=== PATIENT | male | born 1960 | race American Indian/Alaskan Native ===

== ENCOUNTER 2018-05-17 05:15 | Emergency (ER) | payer OTHER ==
[2018-05-17 05:24] VITALS: BP 162/78
--- NOTE | 2018-05-17 06:30 | XRay Report ---
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 These are also seen in the left lower extremity, whi ch is partially imaged on lateral view. Mild left knee tricompartmental osteoarthrosis. No definite j oint effusion. No gross malalignment or deformity identified. No periarticular fracture. IMPRESSION: No acute right knee findings. 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 Note history and laterality marker mismatch. This document is electronically signed by Mc Gross MD., May 17 2018 06:28:05 AM ET
[2018-05-17] MEDS ORDERED: NORCO 5/325 PO ONE ×2 (07:19→07:20)
[2018-05-17] MEDS ORDERED: NORCO 5/325 ONE (07:21)
--- NOTE | 2018-05-17 07:52 | Emergency Department Report ---
ED Lower Extremity HPI - General Chief Complaint: Extremity Injury, Lower Stated Complaint: RIGHT KNEE PAIN Time Seen by Provider: 05/17/18 07:15 Source: patient Mode of arrival: Ambulatory Limitations: No Limitations - History of Present Illness Initial Comments: This is a 57-year-old male who presents with acute on chronic right knee pain. 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 He was in route to work this morning but could not tolerate pain. Patient reports pain is 10 out of 10 on pain scale constant throbbing sensation to anterior knee. He also reports some swelling and pain worse with movement. Patient reports pain increased over the past 5 months. He also reports chronic pain for several years to bilateral lower extremity. Patient states he is applying Biofreeze with no improvement of symptoms. Denies numbness or tingling, radiating pain, paresthesias, or weakness. MD Complaint: knee injury (right) Onset/Timin -: month(s) Injury: Knee: Right Type of Injury: unknown Place: home Severity: severe Severity scale (0 -10): 10 Improves With: nothing Worsens With: weight bearing, movement, palpation Context: walking Associated Symptoms: swelling, able to partially bear weight, ambulatory. denies: numbness, tingling, unable to bear weight Treatments Prior to Arrival: cold therapy - Related Data Previous Rx's Medication Instructions Recorded Last Taken Type traMADol [Ultram 50 MG tab] 50 mg PO Q6HR PRN #12 tablet 05/17/18 Unknown Rx Allergies Allergy/AdvReac Type Severity Reaction Status Date / Time aspirin Allergy Nausea Unverified 12/20/13 09:21 ED Review of Systems ROS: Stated complaint: RIGHT KNEE PAIN Other details as noted in HPI Constitutional: denies: chills, fever Respiratory: denies: cough, shortness of breath, wheezing Cardiovascular: denies: chest pain, palpitations Gastrointestinal: denies: abdominal pain, nausea, diarrhea Musculoskeletal: joint swelling (right knee), arthralgia (right knee). denies: back pain Skin: denies: rash, lesions Neurological: denies: headache, weakness, paresthesias Psychiatric: denies: anxiety, depression ED Past Medical Hx - Past Medical History Previous Medical History?: Yes Additional medical history: Bilatereral knee pain, defenerative spurring. Osteoarthrosos, lumbar spondylosis - 12/20/13 - Surgical History Past Surgical History?: No - Social History Smoking Status: Current Every Day Smoker Substance Use Type: Alcohol - Medications Home Medications: Home Medications Medication Instructions Recorded Confirmed Last Taken Type traMADol [Ultram 50 MG tab] 50 mg PO Q6HR PRN #12 tablet 05/17/18 Unknown Rx ED Physical Exam - General Limitations: No Limitations General appearance: alert, in no apparent distress - Respiratory Respiratory exam: Present: normal lung sounds bilaterally. Absent: respiratory distress - Cardiovascular Cardiovascular Exam: Present: regular rate, normal rhythm. Absent: systolic murmur, diastolic murmur, rubs, gallop - GI/Abdominal GI/Abdominal exam: Present: soft, normal bowel sounds - Expanded Lower Extremity Exam Right Knee exam: Present: tenderness (tenderness swelling anterior patella, limited range of motion, 20 flexion actively.), swelling, crepidus, pain w/ pronation/supination. Absent: full ROM, abrasion, laceration, ecchymosis, deformity, dislocation, erythema, effusion, posterior draw sign, full knee extension Lower Leg exam: Present: normal inspection, full ROM Ankle exam: Present: normal inspection, full ROM Foot/Toe exam: Present: normal inspection, full ROM Neuro vascular tendon exam: Present: no vascular compromise Gait: Positive: observed and limited by pain - Neurological Exam Neurological exam: Present: alert, oriented X3 - Psychiatric Psychiatric exam: Present: normal affect, normal mood - Skin Skin exam: Present: warm, dry, intact, normal color. 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 These are also seen in the left lower extremity, which is partially imaged on lateral view. Mild left knee tricompartmental osteoarthrosis. No definite joint effusion. No gross malalignment or deformity identified. No periarticular fracture. IMPRESSION: No acute right knee findings. 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 Note history and laterality marker mismatch. - Medical Decision Making Patient was examined by me. Vitals are normal and patient is in no acute distress. Given [place] 5/325 mg by mouth once while in ER. Obtained a x-ray of the left knee. X-ray dictated by radiologist report reviewed by myself. No acute right knee findings. 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 Note history and laterality marker mismatch. Consulted with the attending and Dr. Milian. Dr. Milian suggest stasis is an incidental finding and not acute. Patient prescribed pain medication, use cane to aid in ambulation, and follow-up outpatient. Patient informed of results. Start diclofenac and tramadol. Referral to orthopedic surgeon Dr. Milian. Plan discussed with patient to discharge home and treat outpatient. He agrees with ER plan. Patient discharged home in stable condition. Critical care attestation.: If time is entered above; I have spent that time in minutes in the direct care of this critically ill patient, excluding procedure time. ED Disposition Clinical Impression: Right anterior knee pain Osteoarthritis of right knee Qualifiers: Osteoarthritis type: primary Qualified Code(s): M17.11 - Unilateral primary osteoarthritis, right knee Disposition: TO HOME OR SELFCARE Is pt being admited?: No Does the pt Need Aspirin: No Condition: Stable Instructions: Arthralgia (ED), Osteoarthritis (ED), Self-Care Measures with a Chronic Disease (ED) Additional Instructions: Rest Use ice or heat on affected area for 20 minutes and off for 2 hours. Take pain medication as needed for pain. Follow-up with orthopedic surgeon for continued care. Follow up with Primary Care Provider in 2-3 days. Prescriptions: traMADol [Ultram 50 MG tab] 50 mg PO Q6HR PRN #12 tablet PRN Reason: Pain Referrals: [facility] [Outside] - 3-5 Days [facility] [Outside] - 3-5 Days DWIGHT MILIAN MD [Staff Physician] - 3-5 Days Forms: Work/School Release Form(ED) Time of Disposition: 08:05
== END 2018-05-17 08:50 | disposition home or self-care (01) ==
LOC: ED 05:15
DX: M17.11 Unilateral primary osteoarthritis, right knee (principal); F17.200 Nicotine dependence, unspecified, uncomplicated; Z88.6 Allergy status to analgesic agent
CPT/HCPCS: 99283